=== PATIENT | male | born 1980 ===

== ENCOUNTER 2023-10-07 03:12 | Emergency (ER) | payer BC, SELFPAY ==
[2023-10-07 03:14] VITALS: BP 115/80
[2023-10-07 03:20] VITALS: BMI 22.1
[2023-10-07] MEDS: TORADOL 30 MG IV (03:23)
[2023-10-07] MEDS: NSS 1000 IV ×2 (03:24→05:00)
--- NOTE | 2023-10-07 03:37 | ED.GENMED ---
History of Present Illness
General
Chief Complaint: Flank Pain
Source: patient and previous hospital records (Several previous ED visits for similar complaints, most recently May 14, 2023.)
Exam Limitations: none
Time Seen by Provider: 10/07/23 03:19
Nursing documentation reviewed up to this point in time: agreed with
Travel History
Have you had any contact with someone who has COVID-19?: No
Do you have any symptoms of coronavirus? Fever > 100 degrees, chills, cough, shortness of breath, sore throat, loss of taste or smell, muscle aches, or headache?: No
History of Present Illness
History of Present Illness:
This is a 42-year-old gentleman who has history of kidney stones, follows with Dr. Sky. He complains of abrupt onset of left flank pain that radiates to his left lower quadrant waking him from sleep accompanied with nausea, dry heaves. Flank
pain feels very similar to previous episodes of renal colic and he states he has had similar sporadic episodes over the past year, last occurrence in May 2023.
Previous stones have passed on their own; he has not required surgical intervention thus far.
He states he took a dose of hydrocodone, leftover from previous stones without relief.
He states Toradol seems to be more effective for pain.
He denies fever nor chills, denies dysuria and urgency and or hematuria. He denies diarrhea nor constipation.
Past History
Past History
ED Past Medical History: Other (Kidney stones)
ED Past Surgical History: None
Social History
Tobacco: Non-smoker
Alcohol: Occasional
Personal:
Living: with family
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
Family History
Family History: Other (Noncontributory)
Phy Exam
Physical Exam
Physical Exam:
GENERAL: 42-year-old male appears somewhat older than stated age, awake and alert, appears in moderate distress, anxious, pacing about exam room.
EYE: anicteric
NECK: Supple, nontender, no meningismus, no significant adenopathy.
ENT: oral mucosa is moist. No rhinorrhea.
CARDIAC: Regular rate and rhythm. no murmur.
LUNGS: Clear breath sounds bilaterally, no acute respiratory distress, no wheezes/rales/rhonchi
ABDOMEN: Soft, nondistended, without focal tenderness, no r/g, mild left CVA tenderness with percussion. Normoactive BS.
NEUROLOGICAL: Alert and oriented x3, no focal neuro deficits. Gait is childress and steady.
SKIN: Warm and dry, mildly pale in color, skin intact. No rash.
MUSCULOSKELETAL: No C/C/E. peripheral pulses are full and equal b/l. No palpable tenderness.
PSYCH: Moderately anxious related to pain.
Course
Orders/Labs/Results
Orders:
Orders
10/07/23 03:20
0.9% Sodium Chloride 1000 ml [Nss] 1,000 ml IV BOLUS
Ketorolac [Toradol] 30 mg IV NOW STA
10/07/23 03:22
Urinalysis Reflex To Culture Urgent
Date Specimen was Collected: 10/07/23
Time Specimen was Collected: 03:45
Renal & Bladder US [US Renal With Bladder] Urgent
Comment:
Reason For Exam: acute L flank pain rad to LLQ
10/07/23 03:24
Basic Metabolic Panel Urgent
10/07/23 04:57
0.9% Sodium Chloride 1000 ml [Nss] 1,000 ml IV BOLUS
Abnormal Lab Results
10/07/23
03:24
BUN 23 H mg/dl
(9-20)
Glucose 122 H mg/dl
(70-99)
10/07/23 03:24
Vital Signs
Initial and Last Documented VS:
Initial Vital Signs
Pulse Resp BP Pulse Ox
76 24 115/80 100
10/07/23 03:14 10/07/23 03:14 10/07/23 03:14 10/07/23 03:14
Last Documented Vital Signs
Pulse Resp BP Pulse Ox
61 17 110/70 97
10/07/23 06:28 10/07/23 06:28 10/07/23 06:27 10/07/23 06:30
MDM/Problems Addressed
Differential Diagnosis Includes:
Patient presents with acute onset of left flank pain radiating to his left lower quadrant, anxious, restless, pacing about exam room.
History of kidney stones and symptoms are quite similar to previous episodes of renal colic.
Will initiate IV fluids and give an IV dose of Toradol.
Will check renal function, urinalysis, assess for accompanying UTI however nothing in history to suggest UTI.
Patient reports having multiple CTs in the past thus will hold off on CAT scan and instead check renal ultrasound with bladder, assess for hydronephrosis and ureteral obstruction.
Chronic conditions affecting care: Other (History of kidney stones)
*Pulse Oximetry
Patient hypoxic: no
*Critical Care Note
Total Time (30-74mins, 75-104mins- exclusive of procedures): Not Applicable
Update Note
Update Note:
Patient remains comfortable and pain-free after 1 IV dose of Toradol.
BMP shows normal creatinine 0.9.
Renal ultrasound is pending but preliminary review by myself shows several nonobstructing intrarenal stones bilaterally. No significant hydronephrosis on the left but there is absence of ureteral jet on the left.
Will plan for discharge to home with prescription for short course of oral Toradol. He has Dilaudid tablets at home for moderate to severe pain.
Discussed importance of remaining well-hydrated on a daily basis and follow-up with Dr. Sky for recheck.
ED Attending Note
-
Portions of this chart may have been created with voice recognition software.� Occasional wrong word or��sound alike� substitutions may have occurred due to the inherent limitations of voice recognition software.
Discharge Plan
Departure
Patient Disposition: Home (Routine Discharge)
Date of Disposition: 10/07/23
Time of Disposition: 06:39
Patient with high blood pressure during this ER visit?: No
Condition: Good
Discharge Problem:
Acute left sided renal colic
Instructions: Kidney Stones (DC)
Prescriptions:
New
ketorolac 10 mg tablet
10 mg PO Q6H 5 Days Qty: 20 1RF
No Action
ketorolac 10 mg tablet
10 mg PO QID PRN (Reason: pain) Qty: 20 0RF
tamsulosin [Flomax] 0.4 mg capsule
0.4 mg PO DAILY Qty: 10 0RF
Referrals:
Adalberto Sky MD [Active] - Call in 1-3 days for appt
Avila Foster DO [Family Provider] -
Interventions
Interventions:
*Risk Screen - Suicide Last Done: 10/07/23 03:44
*General Assessment Last Done: 10/07/23 03:25
*Neglect/Abuse Screening Last Done: 10/07/23 03:44
ED- Fall Risk Assessment Last Done: 10/07/23 06:28
*ED COVID-19 Vaccine History Last Done: 10/07/23 06:28
ED-Fvzapi-Usqzyrqtna Assessment Last Done: 10/07/23 03:25
ED-Male Genitourinary Assessment Last Done: 10/07/23 03:25
Discharge Date and Time
Print Language: UZBEK
[2023-10-07 03:48] VITALS: BP 109/71
[2023-10-07 03:51] LABS: Blood Urea Nitrogen 23 mg/dl (9-20); Calcium 9.7 mg/dl (8.4-10.2); Carbon Dioxide 28 mmol/L (22-30); Chloride 104 mmol/L (98-107); Estimated Creatinine Clearance 111 ml/min; Glucose 122 mg/dl (70-99); Potassium 3.8 mmol/L (3.5-5.1); Sodium 141 mmol/L (135-145); eGFR > 60.00
[2023-10-07 04:00] VITALS: BP 112/73
[2023-10-07 05:00] VITALS: BP 110/74
[2023-10-07 06:27] VITALS: BP 110/70
== END 2023-10-07 07:04 | disposition home or self-care (01) ==
LOC: EMR 03:12
PROVIDERS: EMERGENCY PHYSICIAN Emergency Medicine; FAMILY PHYSICIAN Family Medicine Sports Medicine
DX: N20.0 Calculus of kidney (principal); Z87.442 Personal history of urinary calculi
CPT/HCPCS: 99284; 96374; 96361 ×2; 76770; 80048

== ENCOUNTER 2023-10-10 03:24 | Observation (INO) | payer BC, SELFPAY ==
[2023-10-09 20:31] VITALS: BP 143/90
--- NOTE | 2023-10-09 22:08 | ED.GENMED ---
History of Present Illness
General
Chief Complaint: Flank Pain
Source: patient
Exam Limitations: none
Time Seen by Provider: 10/09/23 21:46
Travel History
Have you had any contact with someone who has COVID-19?: No
Do you have any symptoms of coronavirus? Fever > 100 degrees, chills, cough, shortness of breath, sore throat, loss of taste or smell, muscle aches, or headache?: No
History of Present Illness
History of Present Illness:
This is a 42 year old male that comes in with c/o pain from his renal calculus. States that he was here a couple of days ago. States that he has left sided abd pain. States that he has take Tramadol 2 tabs at 1:30 and 2 tabs at 7pm. States that he
also took Dilaudid at 3:34pm and he still has pain States that he is nauseated. Denies any fever, chills, chest pain, SOB, vomiting, diarrhea, headache, dizziness, urinary burning.
Past History
Past History
ED Past Medical History: Other (Kidney stones)
ED Past Surgical History: Other (Varicose vein right leg)
Social History
Tobacco: Non-smoker
Alcohol: Occasional
Personal:
Living: with family
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
Family History
Family History: Other (Noncontributory)
Review of Systems
Review of Systems
All Other Systems: ROS reviewed and negative except as documented in HPI and ROS
Constitutional: Reports no symptoms; Denies fever or chills
EENT: Reports no symptoms
Respiratory: Reports no symptoms; Denies cough or trouble breathing
Cardiac: Reports no symptoms; Denies chest pain
ABD/GI: Reports abdominal pain (Lower abd left sided pain) and nausea; Denies vomiting or diarrhea
: Reports flank pain (Left sided); Denies dysuria, frequency or urgency
Musculoskeletal: Reports no symptoms
Skin: Reports no symptoms
Neurological: Reports no symptoms; Denies dizzy or headache
Psychiatric: Reports no symptoms
Phy Exam
General Physical Exam
General Presentation: no apparent distress
General age: appears stated age
General Skin: warm and dry
General Habitus: normal
General Mental: alert
General Hydration: appears well hydrated
ENT Exam
ENT Exam: TM's normal, pharynx normal and neck supple
Eye Exam
Eye Exam: EOMI
Cardiovascular Exam
Cardiovascular Exam: regular rate/rhythm, no edema, no murmur and normal peripheral pulses
Pulmonary Exam
Pulmonary Exam: lungs clear, no respiratory distress, no rales, chest non tender, no crackles, no rhonchi, no wheezing and no cough
Gastrointestinal Exam
Gastrointestinal Exam: normal bowel sounds, non tender, soft, no organomegaly, no pulsatile mass, non distended and no cva tenderness
Musculoskeletal Exam
Musculoskeletal Exam: full ROM and no edema
Skin Exam
Skin Exam: normal color, warm/dry, no rash and no petechia
Psychiatric Exam
Psychiatric Exam: normal mood/affect
Course
Orders/Labs/Results
Orders:
Orders
10/09/23 22:07
Urinalysis Reflex To Culture Urgent
Date Specimen was Collected: 10/10/23
Time Specimen was Collected: 00:36
0.9% Sodium Chloride 1000 ml [Nss] 1,000 ml IV BOLUS
US Renal Only W/O Bladder Urgent
Comment:
Reason For Exam: Left sided pain
10/09/23 22:36
Ketorolac [Toradol] 30 mg .ROUTE .STK-MED ONE
10/09/23 22:37
Ketorolac [Toradol] 30 mg IV NOW STA
10/09/23 22:40
Complete Blood Count/With Diff Urgent
Comprehensive Metabolic Panel Urgent
10/10/23 00:38
Urine Microscopic Reflex Cult Urgent
10/10/23 01:33
Ondansetron Injectable [Zofran] 4 mg IV NOW STA
10/10/23 01:34
HYDROmorphone [Dilaudid] 1 mg IV NOW STA
10/10/23 01:59
Consult Urology [UROLOGY CONSULT] Urgent
Consulting Provider: Jarret Mcgregor
Was physician already notified: Yes
10/10/23 02:30
Admit/Transfer Patient As Directed
Co-Sign Provider:
Level of Care: Observation services
Assign to:: Medical/Surgical
Physician / Group: htay
Diagnosis: intractbale pain, Renal stone, Mild Lt hydronephrosis
10/10/23 02:34
Code Status As Directed
Resuscitation Status: Full Code
Abnormal Lab Results
10/09/23 10/10/23
22:40 00:38
RBC 4.49 L 10^6/uL
(4.70-6.10)
MPV 10.6 H fL
(7.4-10.4)
Absolute Lymphs (auto) 1.0 L 10^3/uL
(1.2-3.4)
Absolute Monos (auto) 0.8 H 10^3/uL
(0.1-0.6)
Lymphocytes % 14.8 L %
(20.5-51.1)
Monocytes % 11.8 H %
(1.7-9.3)
Carbon Dioxide 32 H mmol/L
(22-30)
ALT 68 H U/L
(0-50)
Ur Occult Blood Reflex 4+ A
(Negative)
Urine RBC >100 A /HPF
(0-2)
Urine Bacteria (Reflex) Few A
(Negative)
Urine Glucose 1+ A
(Negative)
10/09/23 22:40
10/09/23 22:40
Carbon dioxide slightly elevated. ALT elevation. Urine negative for infection.
Vital Signs
Initial and Last Documented VS:
Initial Vital Signs
Temp Pulse Resp BP Pulse Ox
97.2 F 95 19 143/90 98
10/09/23 20:31 10/09/23 20:31 10/09/23 20:31 10/09/23 20:31 10/09/23 20:31
Last Documented Vital Signs
Temp Pulse Resp BP Pulse Ox
97.2 F 69 18 117/89 96
10/09/23 20:31 10/10/23 02:09 10/10/23 02:09 10/10/23 02:09 10/10/23 02:09
MDM/Problems Addressed
Differential Diagnosis Includes:
Renal calculus
MDM/Problems Addressed:
This is a 42 year old male that comes in with c/o left sided pain. States that it is his kidney stone pain and that he has had many of them. States that h was here a few days ago and has taken his medication for pain at home. States that Dr. Sky
told him he would go in and clean him out the next time.
Will check labs. Urine and Repeat US. Will give IV fluids.
Back into see patient. Explained that he has Stones in the kidney's but no mention of stones in the ureters. Patient states that the tech told him he had stones and that Dr. Sky told him to come and he would clean them out the next time.
Message seen to Dr. Mcgregor. Await his response.
Dr. Mcgregor feels that the patent can go home. Will discharge.
Back into see patient. Patient states that he can't go home his pain is to bad. States that he will just come back in an ambulance. Explained to patient that he has stones in the kidney but there is none seen in the Ureter. Will message Dr. Mcgregor
and will have [facility] [employer] admit.
Chronic conditions affecting care: Other (Renal calculus)
Acute Exacerbation and/or Progression of Chronic Illness:
Renal calculus
*Radiology
Radiology exam reviewed: radiology read reviewed (US-Bilateral nonobstructing intrarenal calculi. Interval development of mild left hydronephrosis. )
*Pulse Oximetry
Patient hypoxic: no
*EKG
Interpreted by ED Provider?: NA
Rate: EKG- N/A
*Assessment Services Manager Interpretation
Rate: Assessment Services Manager- N/A
*Critical Care Note
Total Time (30-74mins, 75-104mins- exclusive of procedures): Not Applicable
ED Attending Note
-
Portions of this chart may have been created with voice recognition software.� Occasional wrong word or��sound alike� substitutions may have occurred due to the inherent limitations of voice recognition software.
Discharge Plan
Departure
Patient Disposition: Admit
Date of Disposition: 10/10/23
Time of Disposition: 02:00
Admit to: Med/Surg
Presentation/result/management discussed w/ accepting MD/DO: Hospitalist
Patient with high blood pressure during this ER visit?: Yes
Condition: Good
Covid-19: Not Applicable
Discharge Problem:
Acute left flank pain
Prescriptions:
No Action
ketorolac 10 mg tablet
10 mg PO QID PRN (Reason: pain) Qty: 20 0RF
tamsulosin [Flomax] 0.4 mg capsule
0.4 mg PO DAILY Qty: 10 0RF
ketorolac 10 mg tablet
10 mg PO Q6H 5 Days Qty: 20 1RF
Referrals:
Avila Foster DO [Family Provider] -
Interventions
Interventions:
*Risk Screen - Suicide Last Done: 10/09/23 20:31
*General Assessment Last Done: 10/09/23 20:31
*Neglect/Abuse Screening Last Done: 10/09/23 20:31
*ED COVID-19 Vaccine History Last Done: 10/09/23 20:31
AI-Oatmxt-Rsrxzedjxx Assessment Last Done: 10/09/23 22:00
ED-Male Genitourinary Assessment Last Done: 10/09/23 22:00
Discharge Date and Time
Print Language: KINYARWANDA
[2023-10-09] MEDS: TORADOL 30 MG IV (22:37)
[2023-10-09] MEDS: NSS 1000 IV (22:38)
[2023-10-09 22:45] LABS: % Basophils 0.9 % (0-2); % Eosinophils 3.2 % (0-6); % Immature Granulocytes 0.1 % (0-0.5); % Lymphocytes 14.8 % (20.5-51.1); % Monocytes 11.8 % (1.7-9.3); % Neutrophils 69.2 % (42.2-75.2); Absolute Basophils 0.1 10^3/uL (0-0.2); Absolute Eosinophils 0.2 10^3/uL (0-0.7); Absolute Monocytes 0.8 10^3/uL (0.1-0.6); Absolute Neutrophils 4.8 10^3/uL (1.4-6.5); Hematocrit 39.2 % (39.0-52.0); Hemoglobin 13.8 g/dL (13.0-18.0); Mean Corp Hgb Conc. 35.2 g/dL (33.0-37.0); Mean Corpuscular Hgb 30.7 pg (27.0-31.0); Mean Corpuscular Volume 87.3 fL (80.0-94.0); Mean Platelet Volume 10.6 fL (7.4-10.4); Nucleated Red Blood Cells % 0 % (-); Platelet Count 222 10^3/uL (130-400); Red Blood Cell Count 4.49 10^6/uL (4.70-6.10); Red Cell Dist. Width 12.8 % (11.5-14.5); White Blood Cell Count 6.9 10^3/uL (4.8-10.8)
[2023-10-09 23:02] LABS: ALT (SGPT) 68 U/L (0-50); AST (SGOT) 38 U/L (17-59); Albumin 4.3 g/dl (3.5-5.0); Alkaline Phosphatase 54 U/L (38-126); Blood Urea Nitrogen 17 mg/dl (9-20); Calcium 9.6 mg/dl (8.4-10.2); Carbon Dioxide 32 mmol/L (22-30); Chloride 100 mmol/L (98-107); Glucose 98 mg/dl (70-99); Potassium 3.9 mmol/L (3.5-5.1); Sodium 139 mmol/L (135-145); Total Bilirubin 0.3 mg/dl (0.2-1.3); Total Protein 7.2 g/dl (6.3-8.2); eGFR > 60.00
[2023-10-10 00:44] LABS: Urine Albumin Negative (Neg - Trace); Urine Bilirubin Negative (Negative); Urine Character Clear (Clear); Urine Color Yellow; Urine Glucose 1+ (Negative); Urine Ketone Negative (Negative); Urine Leukocyte Negative (Negative); Urine Nitrite Negative (Negative); Urine Occult Blood 4+ (Negative); Urine Urobilinogen Negative (Neg - 1+)
[2023-10-10 01:07] LABS: Urine Bacteria Few (Negative); Urine Red Blood Cell >100 /HPF (0-2); Urine Sperm Seen
[2023-10-10] MEDS: DILAUDID 1 MG IV (01:55)
[2023-10-10] MEDS: ZOFRAN 4 MG IV ×3 (01:55→14:55)
[2023-10-10 02:09] VITALS: BP 117/89
--- NOTE | 2023-10-10 02:26 | HPS.HSE ---
Family Physician
-
Family Physician: Avila Foster
Chief Complaint
-
Lt flank pain
History of Present Illness
42M HX Kidney stones follows with [facility] Dr. Sky seen at ER for evalaution of flank pain
Acute Lt flank pain since 10/06
- Intermittent
- POS N/V
- eval at ER on 10/06 POS Renal US for small nonobstructing bilateral renal calculi. No hydronephrosis.
- Prior HX spontaneous passage of stone
- No fever and chills
- Toradol or Dilaudid did not reliev the pain at came back to ER
- Tonght Renal US POS for interval mild left hydronephrosis amd persistent bilateral nonobstructing intrarenal calculi.
ROS
No fever nor chills
Denies dysuria and urgency and or hematuria.
Medical History
Past Medical History
Past Medical History: Reports Other (kidney stones )
Past Surgical History: Reports None
Social History
Tobacco: Non-smoker
Alcohol: Occasional
Drug: None
Family History
Family History: Not pertinent
Allergies / Home Medications
Allergies reflects when Allergies were last updated in [employer].
Home Medications with original date entered in [employer]
Allergy/Medication List:
Allergies
Allergy/AdvReac Type Severity Reaction Status Date / Time
No Known Allergies Allergy Verified 10/09/23 20:30
Home Medications
ketorolac 10 mg tablet 10 mg PO QID PRN pain #20 tabs 03/21/23
tamsulosin 0.4 mg capsule (Flomax) 0.4 mg PO DAILY #10 caps 04/26/23
ketorolac 10 mg tablet 10 mg PO Q6H 5 days #20 tabs 10/07/23
Review of Systems
-
Constitutional: Reports No Symptoms
EENT: Reports No Symptoms
Respiratory: Reports No Symptoms
Cardiac: Reports No Symptoms
Abdomen/GI: Reports No Symptoms
: Reports See HPI and Flank Pain (Lt )
Musculoskeletal: Reports No Symptoms
Skin: Reports No Symptoms
Neurological: Reports No Symptoms
Endocrine: Reports No Symptoms
Hematologic/Lymphatic: Reports No Symptoms
Psych: Reports No Symptoms
Physical Exam
Vital Signs
Vital Signs
Temp Pulse Resp BP Pulse Ox
97.2 F 69 18 117/89 96
10/09/23 20:31 10/10/23 02:09 10/10/23 02:09 10/10/23 02:09 10/10/23 02:09
Physical Exam
General: No Apparent Distress; No Appears Chronically Ill
HEENT: NormoCephalic, Anicteric and Moist mucous membranes
Respiratory: Clear; No Wheezes, Rales or Rhonchi
Cardiac: S1/S2 and Regular Rhythm
Breast: Deferred by me
GI: Soft, Non Tender, Non Distended and Normal Bowel Sounds
Rectal: Deferred by Provider
Musculoskeletal: No Edema
Skin: Warm and Dry
Neuro: AO x 3
Psych: Calm
Laboratory Results
-
10/09/23 22:40
10/09/23 22:40
Laboratory Results
Total Bilirubin 0.3 mg/dl (0.2-1.3) 10/09/23 22:40
AST 38 U/L (17-59) 10/09/23 22:40
ALT 68 U/L (0-50) H 10/09/23 22:40
Alkaline Phosphatase 54 U/L (38-126) 10/09/23 22:40
Data Reviewed
-
Ultrasound: Report Reviewed by me
Lab Data: Labs Reviewed by me
Old Records: Reviewed
Impression/Plan
-
Reviewed VS:
Vital Signs
Temp Pulse Resp BP Pulse Ox
97.2 F 69 18 117/89 96
10/09/23 20:31 10/10/23 02:09 10/10/23 02:09 10/10/23 02:09 10/10/23 02:09
Data
nl WCC
Unremarkable BMP
UA
RBCs > 100
WCC 3-5
10/09/23 US Renal Only W/O Bladder
Bilateral nonobstructing intrarenal calculi.
Interval development of mild left hydronephrosis.
10/07/23 US Renal Only W/O Bladder
Small nonobstructing bilateral renal calculi. No hydronephrosis.
ASSESSMENT & PLAN
Persistent Renal colicky pain - failed OP pain control with PO toradol and PO dilaudid
Bilateral nonobstructing intrarenal calculi.
Interval development of mild left hydronephrosis
- IVF
- Pain control: IV Toradol PRN, IV Dilaudid for break thru pain from Toradol
- PRN antiemetics
- Clear diet , ADAT
- cont Flomax
- Uro consulted
DVT Px: LMWH
Code: Full code
Obs MS
[2023-10-10] MEDS: DILAUDID 0.5 MG IV ×4 (04:50→19:39)
[2023-10-10] MEDS: NSS 1000 IV ×3 (04:51→23:37)
[2023-10-10 06:38] LABS: Hematocrit 40.1 % (39.0-52.0); Hemoglobin 13.9 g/dL (13.0-18.0); Mean Corp Hgb Conc. 34.7 g/dL (33.0-37.0); Mean Corpuscular Hgb 30.8 pg (27.0-31.0); Mean Corpuscular Volume 88.7 fL (80.0-94.0); Mean Platelet Volume 10.6 fL (7.4-10.4); Platelet Count 215 10^3/uL (130-400); Red Blood Cell Count 4.52 10^6/uL (4.70-6.10); Red Cell Dist. Width 12.7 % (11.5-14.5); White Blood Cell Count 7.4 10^3/uL (4.8-10.8)
[2023-10-10 07:43] LABS: Blood Urea Nitrogen 17 mg/dl (9-20); Calcium 8.7 mg/dl (8.4-10.2); Carbon Dioxide 29 mmol/L (22-30); Chloride 102 mmol/L (98-107); Glucose 103 mg/dl (70-99); Potassium 3.8 mmol/L (3.5-5.1); Sodium 138 mmol/L (135-145); eGFR > 60.00
[2023-10-10 07:45] VITALS: BP 125/88
[2023-10-10 07:47] VITALS: BP 125/88
[2023-10-10] MEDS: TORADOL 15 MG IV (07:49)
--- NOTE | 2023-10-10 07:58 | PHANOTE ---
med rec gabrielle- patient has old bottle of hydromorphone from 2011, pdmp does not go back that far and patient took last 10/09/2023.
--- NOTE | 2023-10-10 08:30 | CONS.URO ---
Consultation
-
Performing Provider: Peffer
Reason for Consultation: ureteral stone
Medical History
History of Present Illness
42[address] Sky hx of recurrent stones admitted after second ED presentation for L flank pain
US showed a few small renal stones 4-5mm and a 7mm L distal ureteral stone also appears on bladder images (not on rads report)
Patient admitted due to intractable pain
No fevers, nausea and vomiting
No signs of sepsis and mild urinalysis
Past Medical History
Past Medical History: Other (Kidney stones)
Past Surgical History: None
Social History
Tobacco: Non-smoker
Alcohol: Occasional
Drug: None
Family History
Family History: Reviewed & Not Pertinent
Allergies/Home Medications
Allergies
Allergy/AdvReac Type Severity Reaction Status Date / Time
No Known Allergies Allergy Verified 10/09/23 20:30
Home Medications
�Medication �Instructions �Recorded �Confirmed �Type
atfnled-nuruqpdorpzma-cqgaevas 250 2 tab PO DAILYPRN PRN sinus 10/10/23 10/10/23 History
mg-250 mg-65 mg tablet (Excedrin pressure
Extra Strength)
ketorolac 10 mg tablet 10 mg PO Q6HPRN PRN mild pain 10/10/23 10/10/23 History
Physical Exam
Vital Signs
Vital Signs
Temp Pulse Resp BP Pulse Ox
98.9 F 76 18 125/88 98
10/10/23 07:47 10/10/23 07:47 10/10/23 07:47 10/10/23 07:47 10/10/23 08:06
Lab / Testing Results
Laboratory Results
10/10/23 06:29
10/10/23 06:56
Physical Exam
General: Well Developed, Well Nourished and No Apparent Distress
Respiratory: Clear
GI: Soft and Non Tender
Genito-urinary: Costovertebral Angle Tend
Skin: Warm and Dry
Neuro: AO x 3
Psych: Calm and Intact Judgement
Assessment / Plan
-
42M with recurrent kidney stones, no prior procedures
Admitted with intractable pain from 7mm L ureteral stone visible on US, also with small b/l renal stones 4-5mm
- NPO
- OR today for L ureteroscopy, laser lithotripsy of L ureteral and renal stones, stent placement
- Ceftriaxone prophylaxis
Data Reviewed
-
Ultrasound: Image personally visualized and interpreted
Lab Data: Labs Reviewed
[2023-10-10] MEDS: STERILE WATER FOR INJECTION 10 ML IV (08:51)
[2023-10-10] MEDS: ROCEPHIN 1000 MG IV (08:52)
--- NOTE | 2023-10-10 09:02 | W.PN.HOSP.TC ---
Today's Communication/Plan
-
see above
Assessment / Plan
Assessment / Plan
Impression:
Recurrent bilateral nephrolithiasis
Intractable left flank pain with 7 mm left ureteral stone and hydronephrosis seen on ultrasound.
Plan:
Afebrile.
Normal white count and creatinine
Urology input appreciated
Plan 4 OR for left ureteroscopy and laser lithotripsy of left ureteral and renal stones. Stent placement.
Antibiotics for prophylaxis: Ceftriaxone.
Anticipated Discharge: Within 24 hours
Subjective/Interval History
-
Date of Service: October 10, 2023
Objective Data
-
Labs:
Laboratory Results
10/09/23 10/10/23 10/10/23
22:40 06:29 06:56
WBC 6.9 7.4
Hgb 13.8 13.9
Hct 39.2 40.1
Plt Count 222 215
Sodium 139 Cancelled 138
Potassium 3.9 Cancelled 3.8
Chloride 100 Cancelled 102
Carbon Dioxide 32 H Cancelled 29
BUN 17 Cancelled 17
Creatinine 1.0 Cancelled 1.1
Glucose 98 Cancelled 103 H
Calcium 9.6 Cancelled 8.7
Total Bilirubin 0.3
AST 38
ALT 68 H
Alkaline Phosphatase 54
Vital Signs:
Vital Signs
Temp Pulse Resp BP Pulse Ox
98.9 F 76 18 125/88 98
10/10/23 07:47 10/10/23 07:47 10/10/23 07:47 10/10/23 07:47 10/10/23 08:06
Physical Exam
-
General: Well Developed and No Apparent Distress
HEENT: Normocephalic, Atraumatic and Moist Mucous Membranes
Respiratory: Clear to Auscultation
Cardiac: Regular Rhythm and S1/S2; Negative Murmur, Rub or Gallop
GI: Soft, Nontender, Nondistended and Normal Bowel Sounds; Negative Organomegaly
Rectal: Deferred by Provider
Musculoskeletal: No Clubbing, No Cyanosis and No Edema
Skin: Negative Rash
Neuro: Nonfocal/Grossly Intact
[2023-10-10] MEDS: AFRIN NASAL SPRAY 2 SPRAYS NASAL (09:24)
[2023-10-10] MEDS: TUMS 2 TABLET PO (11:43)
[2023-10-10 12:15] VITALS: BMI 22.1
[2023-10-10 12:23] VITALS: BP 134/85
[2023-10-10 15:00] VITALS: BP 135/88
--- NOTE | 2023-10-10 17:02 | W.PN.UPDATE ---
Update Note
Progress Note Update
This afternoon there was a disagreement between the patient and covering surgeon
As a result his procedure was cancelled
The OR will reschedule patient's stone procedure for tomorrow and I or Dr. Sky will complete it
Regular diet, NPO at SD
[2023-10-10] MEDS: LOVENOX 40 MG SC (18:25)
[2023-10-10] MEDS: TYLENOL 650 MG PO (19:23)
[2023-10-10] MEDS: AFRIN NASAL SPRAY NASAL (20:33)
[2023-10-10 23:24] VITALS: BP 134/76
[2023-10-11] VITALS (8 sets, daily range): BP systolic 114–131; BP diastolic 70–87
[2023-10-11] MEDS: ZOFRAN 4 MG IV (04:19)
[2023-10-11] MEDS: DILAUDID 0.5 MG IV (04:20)
--- NOTE | 2023-10-11 04:54 | PTCARENOTE ---
Patient requesting a 'break' from IVF. Patient agitated and states he is urinating too much from them. This RN educated patient reason for IVF at this time, especially since he is NPO, but patient stated he did not want to have them running at this
time. IV detached and notified SABA Koo. Care ongoing.
[2023-10-11] MEDS: TORADOL 15 MG IV ×2 (06:11→13:12)
[2023-10-11] MEDS: AFRIN NASAL SPRAY NASAL (08:53)
[2023-10-11] MEDS: NSS IV (09:43)
--- NOTE | 2023-10-11 11:31 | W.IMMPOSTOP ---
Surgical Immed Post Op Note
-
Primary Surgeon: Jose Daniel
Pre-op Diagnosis: mild left hydronephrosis, non-obstructing left renal stones
Post-op Diagnosis: obstructing left UVJ stone, non-obstructing left renal stones
Procedure Performed: cysto, left URS/LL/stone extraction/stent placement
Anesthesia Type: LMA
Specimen / Cultures: None/None
Estimated Blood Loss: Negligible
Drains: 6Fr x 26 cm JJ left ureteral stent
Complications: None
Operative Findings: 5 mm left UVJ stone - manipulated retrograde and fragmented w/n ureter, non-obstructing <3 mm stones on renal papillae brushed off and irrigated out of left kidney, final KUB w/ good stent position
[2023-10-11] MEDS: DETROL LA 4 MG PO (12:03)
[2023-10-11] MEDS: Pyridium 200 MG PO (12:03)
--- NOTE | 2023-10-11 12:25 | PTCARENOTE ---
Pt arrived back from the OR at approx 1220. Pt alert and oriented x3. Denies any pain, some urgency to urinate. Pt feeling hungry, ordering lunch now. VSS. Call fields is within reach.
--- NOTE | 2023-10-11 14:19 | W.DS.TRANS ---
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
-
Discharge Instructions:
Discharge Diagnosis/Procedures Obstructive nephrolithiasis
Diet Regular
Instructions:
Stand-Alone Forms:
Changes to Home Medications: Yes
Discharge Medications:
DC Medications w/original date entered in [employer]
ynilmee-iotvjcmhjlmnb-ncidhgnc 250 mg-250 mg-65 mg tablet (Excedrin Extra Strength) 2 tab PO DAILYPRN PRN sinus pressure 10/10/23
ketorolac 10 mg tablet 10 mg PO Q6HPRN PRN mild pain 10/10/23
phenazopyridine 200 mg tablet (Pyridium) 200 mg PO TID 6 doses #6 tabs 10/11/23
Home Medication Changes
Pyridium
Pending Results: No
--- NOTE | 2023-10-11 14:20 | CM ---
Reviewed chart, met with patient to obtain information for assessment. Patient stated that he lives with his in a single two story home, with two steps to enter. He is independent with all of his ADLs, personal care, dressing and bathing. He
can do all manager academic, cook clean and do laundry.
He drives and can get to his appointments and do all of his own shopping.
He denied any DME. He has never been to a SNF.
Patient has a prescription plan and uses [facility] in [place] for all of his medications.
His PCP is, Dr. Avila Foster.
Patient stated that he would like to return home when medically cleared for discharge.
Plan: Case management will continue to follow and assist with discharge planning. Patient would like to return home when stable.
== END 2023-10-11 17:35 | disposition home or self-care (01) ==
LOC: 3 WEST ACU 03:24
PROVIDERS: Clinical Nurse Specialist Family Health; ADMITTING PHYSICIAN Internal Medicine; ATTENDING PHYSICIAN Internal Medicine; CONSULT PHYSICIAN Urology; EMERGENCY PHYSICIAN Emergency Medicine; FAMILY PHYSICIAN Family Medicine Sports Medicine
DX: N13.2 Hydronephrosis with renal and ureteral calculous obstruction (principal); R10.9 Unspecified abdominal pain; R11.0 Nausea; Z87.442 Personal history of urinary calculi
CPT/HCPCS: 52356; 74018; 76000; 76775; 80048; 80053; 81003; 81015; 85025; 85027; C1769; C1894; C2617; G0378